=== PATIENT | male | born 1955 | race Caucasian/White ===

== ENCOUNTER 2021-05-25 05:37 | Outpatient (CLI) | payer MEDICARE, MEDICAID ==
[~2021-05-25] VITALS: Ht 190.5 cm; Wt 107.5 kg
[2021-05-25] MEDS ORDERED: CYCL10TA9 PO (15:00)
[2021-05-25] MEDS ORDERED: GLBR5T PO (15:00)
== END 2021-05-25 15:36 | disposition home or self-care (01) ==
LOC: PREOP 05:37
PROVIDERS: ATTEND Surgery
DX: Z01.818 Encounter for other preprocedural examination (principal)

== ENCOUNTER 2022-07-07 13:44 | Emergency (ER) | payer MEDICARE, MEDICAID ==
[~2022-07-07] VITALS: Ht 190 cm; Wt 97.0 kg
[~2022-07-07 13:44] MED LIST: CYCL10TA25 PO; GLBR5T PO
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
[2022-07-07] MEDS ORDERED: ACETAMINOPHEN 500 MG TAB (TYLENOL) PO ONE (14:15)
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
[2022-07-07] MEDS ORDERED: CYCL10TA25 PO (15:39)
[2022-07-07 15:48] VITALS: BP 145/75
== END 2022-07-07 15:48 | disposition home or self-care (01) ==
LOC: EDUNIT# 13:44 → ER 13:49
DX: M54.50 Low back pain, unspecified (principal); F17.200 Nicotine dependence, unspecified, uncomplicated; Z28.310 Unvaccinated for COVID-19; V89.2XXA Person injured in unspecified motor-vehicle accident, traffic, initial encounter; Y92.410 Unspecified street and highway as the place of occurrence of the external cause
CPT/HCPCS: 72125; 72128; 72131

== ENCOUNTER → 2022-07-15 | Outpatient (CLI) | payer MEDICARE, MEDICAID ==
--- NOTE | 2022-07-15 09:23 | Diagnostic Imaging Report ---
INDICATION: Chronic right shoulder pain after fall 3 years earlier AP, oblique and transscapular views of right shoulder are obtained with axillary view. There is superior subluxation of the humeral head with respect to the glenoid fossa. Mild marginal spurring is seen at the acromioclavicular joint. No acute fracture is seen. Note is made of calcific pleural plaque in the upper right chest. IMPRESSION: Degenerative findings in the right shoulder with probable long standing rotator cuff injury. No definite acute osseous abnormalities identified. Note is made of calcific pleural plaquing in the visible right hemithorax. Dictated by: Dictated on workstation # [id number]
== END ==
LOC: RAD FS 08:34
PROVIDERS: ATTEND Nurse Practitioner
DX: M19.011 Primary osteoarthritis, right shoulder (principal)
CPT/HCPCS: 73030

== ENCOUNTER 2022-08-01 00:49 | Emergency (ER) | payer MEDICAID, MEDICARE ==
[~2022-08-01] VITALS: Ht 190.5 cm; Wt 101.0 kg
[2022-08-01 00:55] VITALS: BP 160/92
[2022-08-01] MEDS ORDERED: KETOROLAC 30 MG/ML VIAL IM ONE (01:15)
--- NOTE | 2022-08-01 01:21 | ED Cough/URI ---
General Chief Complaint: Cough/Cold/Flu Symptoms Stated Complaint: FEVER/WSWEATS Nursing Triage Note: Patient states that he has been sick for the last 3-4 days stating that his only complaint has been cold sweats and chills. Patient wants to be checked out. History of Present Illness Date Seen by Provider: Aug 01, 2022 Time Seen by Provider: 01:05 Initial Comments 67-year-old male with PMH of DM2/active smoker, is here with complaints of feeling ill for the last 3 to 4 days with symptoms of subjective fever and chills with body aches. Patient states that he has an occasional cough. No known sick contacts. Denies diarrhea, abdominal pain, chest pain, shortness of breath, runny nose. Allergies and Home Medications Allergies Coded Allergies: codeine (Verified Allergy, Unknown, 07/07/22) morphine (Verified Allergy, Unknown, 07/07/22) naproxen (Verified Allergy, Unknown, 07/07/22) Patient Home Medication List Home Medication List Reviewed: Yes Cyclobenzaprine HCl (Cyclobenzaprine HCl) 10 Mg Tablet, 10 MG PO DAILY, (Reported) Entered as Reported by: ROLANDO SHAY on 05/25/21 1500 Cyclobenzaprine HCl (Cyclobenzaprine HCl) 10 Mg Tablet, 10 MG PO Q8H PRN for SPASMS Prescribed by: ANA BARAJAS on 07/07/22 1539 Glyburide (Glyburide) 5 Mg Tablet, 5 MG PO DAILY, (Reported) Entered as Reported by: ROLANDO SHAY on 05/25/21 1500 Review of Systems Review of Systems Constitutional: chills, fever, malaise Respiratory: no symptoms reported Cardiovascular: no symptoms reported Gastrointestinal: no symptoms reported Genitourinary: no symptoms reported Musculoskeletal: no symptoms reported Skin: no symptoms reported Psychiatric/Neurological: No Symptoms Reported Hematologic/Lymphatic: No Symptoms Reported Immunological/Allergic: no symptoms reported Past Ngsgtbh-Wiosfv-Zahfby Hx Patient Social History Tobacco Use?: Yes Tobacco type used: Cigarettes Smoking Status: Current Everyday Smoker Substance use?: Yes Substance type: Marijuana Alcohol Use?: No Pt feels they are or have been: No Past Medical History Surgeries: Yes (NOSE X3, R AND L HAND) Respiratory: No Cardiac: No Neurological: No Genitourinary: Yes (USES CATH) Gastrointestinal: Yes (HEPATITIS C) Hepatitis Endocrine: Yes Diabetes, Non-Insulin dep Cancer: No Physical Exam Vital Signs - First Documented 08/01/22 00:55 Temp 36.6 Pulse 101 Resp 18 B/P (MAP) 160/92 (114) Pulse Ox 98 O2 Delivery Room Air Capillary Refill : Less Than 3 Seconds Height: '" Weight: lbs. oz. kg; 27.00 BMI Method: General Appearance: WD/WN, no apparent distress HEENT: PERRL/EOMI, normal ENT inspection, TMs normal, pharynx normal Neck: non-tender, full range of motion, supple, normal inspection Respiratory: lungs clear, normal breath sounds, no respiratory distress Cardiovascular: regular rate, rhythm Gastrointestinal: normal bowel sounds, non tender, soft Extremities: normal range of motion Neurologic/Psychiatric: alert, normal mood/affect, oriented x 3 Skin: normal color Lymphatic: no adenopathy Progress/Results/Core Measures Suspected Sepsis SIRS Temperature: Pulse: 101 Respiratory Rate: 18 Blood Pressure 160 /92 Mean: 114 Results/Orders Lab Results Laboratory Tests Test 08/01/22 01:08 Range/Units Influenza Type A (RT-PCR) Not Detected Not Detecte Influenza Type B (RT-PCR) Not Detected Not Detecte SARS-CoV-2 RNA (RT-PCR) Not Detected Not Detecte My Orders Orders - MARGIE CHURCHILL MD Covid 19 Inhouse Test (08/01/22 01:05) Influenza A And B By Pcr (08/01/22 01:05) Ketorolac Injection (Toradol Injection) (08/01/22 01:15) Medications Given in ED Current Medications Medications Dose Ordered Sig/Mac Route Start Time Stop Time Status Last Admin Dose Admin Ketorolac Tromethamine 30 mg ONCE ONCE IM 08/01/22 01:15 08/01/22 01:16 DC 08/01/22 01:20 30 MG Vital Signs/I&O 08/01/22 00:55 Temp 36.6 Pulse 101 Resp 18 B/P (MAP) 160/92 (114) Pulse Ox 98 O2 Delivery Room Air Capillary Refill : Less Than 3 Seconds Blood Pressure Mean: 114 Progress Note : Progress Note 1. VIRAL SYNDROME - COVID test/ Rapid strep test/Rapid flu test: negative - Advised adequate hydration, Ibuprofen prn fever or body aches - Follow up with PCP in 3 to 7 days -The patient was seen in the ED, and treated appropriately to presentation at a specific point in time. Patient is informed that there is a possibility that disease and illness can evolve and change in acuity rapidly or slowly after patient is discharged from the ER. Precautionary advice given to the patient for immediate return to ER if symptoms worsen or do not resolve, and to seek emergency care sooner rather than later. Pt also advised on the importance of PCP follow up and compliance with management and follow up plan with PCP and/or specialist, as this is part of the management plan. Pt verbally expressed understanding. Departure Impression Primary Impression: Viral syndrome Disposition: HOME, SELF-CARE Condition: Stable Departure-Patient Inst. Referrals: CAMILO ROMANO MD (PCP) Primary Care Physician Patient Instructions: Viral Syndrome (DC) Add. Discharge Instructions: - Advised adequate hydration, Ibuprofen prn fever or body aches - Follow up with PCP in 3 to 7 days All discharge instructions reviewed with patient and/or family. Voiced understanding. MARGIE CHURCHILL MD Aug 01, 2022 01:20
== END 2022-08-01 01:41 | disposition home or self-care (01) ==
LOC: EDUNIT# 00:49 → ER FS 00:52
DX: B34.9 Viral infection, unspecified (principal); R50.9 Fever, unspecified; M79.10 Myalgia, unspecified site; R05.9 Cough, unspecified; F17.210 Nicotine dependence, cigarettes, uncomplicated; Z88.6 Allergy status to analgesic agent; Z28.310 Unvaccinated for COVID-19; Z20.822 Contact with and (suspected) exposure to COVID-19
CPT/HCPCS: 87636; 99284

== ENCOUNTER 2022-09-15 05:58 | Outpatient (CLI) | payer MEDICARE ==
[~2022-09-15] VITALS: Ht 190.5 cm; Wt 102.0 kg
[2022-09-15] MEDS ORDERED: TRAZ150T72 PO (11:45)
[2022-09-15] MEDS ORDERED: SEMA0.25 SQ (11:45)
== END 2022-09-15 11:48 ==
LOC: PREOP 05:58
PROVIDERS: ATTEND Surgery
DX: Z01.818 Encounter for other preprocedural examination (principal); Z12.11 Encounter for screening for malignant neoplasm of colon; K21.9 Gastro-esophageal reflux disease without esophagitis

== ENCOUNTER 2022-10-11 08:20 | Day surgery (SDC) | payer MEDICARE ==
[~2022-10-11] VITALS: Ht 190.5 cm; Wt 102.0 kg
[~2022-10-11 08:20] MED LIST changes: +SEMA0.25 SQ; +TRAZ150T72 PO
[2022-10-11] MEDS ORDERED: LACTATED RINGERS 1,000 ML IV STA (08:32)
[2022-10-11 08:45] VITALS: BP 154/97
[2022-10-11] MEDS ORDERED: HURRICAINE EXT TUBE (BENZOCAINE) XX PRN (08:45)
--- NOTE | 2022-10-11 09:26 | Progress Note-Pre Operative ---
Pre-Operative Progress Note Date H&P Reviewed: Oct 11, 2022 Time H&P Reviewed: 09:22 History & Physical: H&P Reviewed, Patient Examed, No changes noted Pre-Operative Diagnosis: GERD, screening colonoscopy BRYAN TIJERINA DO Oct 11, 2022 09:25
[2022-10-11] MEDS ORDERED: PROPOFOL INJECTION 50 ML IV ONE (10:04)
[2022-10-11] MEDS ORDERED: MIDAZOLAM 2 MG/2 ML (VERSED) VIAL ONE (10:04)
[2022-10-11 10:53] VITALS: BP 126/67
[2022-10-11 10:58] VITALS: BP 135/75
--- NOTE | 2022-10-11 11:00 | Progress Note-Post Operative ---
Post-Operative Progess Note Surgeon (s)/Radio Sportscaster (s) Surgeon BRYAN TIJERINA DO Radio Sportscaster: Darien Schwarz, MSIII Pre-Operative Diagnosis GERD, screening colonoscopy Post-Operative Diagnosis Gastritis Thomas's Esophagus Polyp int hemorrhoids poor prep Procedure & Operative Findings Date of Procedure 10/11/22 Procedure Performed/Findings EGD with bx Colonoscopy with snare polypectomy PROCEDURE NOTE: After informed consent was obtained, the patient was brought to the endoscopy suite, placed in bed in left lateral decubitus position. He was administered IV sedation by the CULINARY ARTS TEACHER who then monitored vitals the entire time, heart rate, blood pressure and pulse ox and the scope was inserted down the mouth through the esophagus into the stomach. On the way down, noted some moderate esophagitis, took a picture, pushed into the stomach, pushed past the antrum into the duodenum. Duodenum looked good. Pulled back and noted mild to moderate gastritis, did a biopsy of the antrum and the body of the stomach. Then retroflexed the scope, did not see a hiatal hernia and pulled the scope into the GE junction and then did a biopsy of the GE junction. Pushed the scope back into the stomach, suctioned all the air out of the stomach. At this point pulled the scope up the esophagus and out the mouth. Switched camera, switched gloves, went down below and started the colonoscopy. Pushed all the way to about 150 cm, on the way noted poor prep with large vegetable matter obstructing me from suctioning everything up. On the way in noted polyp in the ascending colon and removed this with snare polypectomy. Then I found another large polyp just outside the cecum, it was large and had to be removed in pieces. Once this was done pushed into the cecum, tried to take a picture of appendiceal orifice (may have) but there was retained fecal material; noted the ileocecal valve. Then slowly withdrew the scope insufflating to look circumferentially at the coto starting in the cecum, up the ascending colon to the hepatic flexure, then down the transverse colon, splenic flexure, into the descending colon down in the sigmoid and then into the rectal vault and took picture of the internal hemorrhoids. The patient tolerated the procedure and he recovered in the endoscopy suite. Recommended for repeat colonoscopy in 1 year because of polyp removed in pieces and the poor prep. Anesthesia Type IV sedation by CULINARY ARTS TEACHER Estimated Blood Loss Estimated blood loss (mL): scant Specimens/Packing Specimens Removed antral bx body of stomach bx GE jxn bx Asc colon polyp x 2 Sigmoid polyp BRYAN TIJERINA DO Oct 11, 2022 11:00
--- NOTE | 2022-10-11 11:02 | Endoscopy Discharge Instruct ---
Endo Procedure/Findings Findings 1.: Gastritis 2.: Thomas's Esophagus 3.: Polyp 4.: Internal Hemorrhoids Discharge Instructions - Activity: You might feel a little sleepy until tomorrow. This is due to the medicine you received to relax you. Until tomorrow, you should: NOT drive a car, operate machinery or power tools. NOT drink any alcoholic beverages. NOT make any important decisions or sign importortant papers. Do not return to work until tomorrow, unless otherwise instructed. Resume p revious activities tomorrow. Diet: Start by taking liquids. If you tolerate liquids, advance to solid food. 1.: EGD in 1 year 2.: Colonoscopy in 1 year Notify Physician - If you experience excessive bleeding, unusual abdominal pain, fever, or chest pain, contact your doctor immediately. Follow-Up: Other Follow up in one week in my office BRYAN TIJERINA DO Oct 11, 2022 11:02
[2022-10-11 11:03] VITALS: BP 172/101
[2022-10-11 11:10] VITALS: BP 164/84
[2022-10-11 11:35] VITALS: BP 172/101
--- NOTE | 2022-10-11 13:15 | Anesthesia-General Post-Op ---
MAC Patient Condition Mental Status/LOC: Same as Preop Cardiovascular: Satisfactory Nausea/Vomiting: Absent Respiratory: Satisfactory Pain: Controlled Complications: Absent Post Op Complications Complications None Follow Up Care/Instructions Patient Instructions None needed. Anesthesiology Discharge Order Discharge Order Patient is doing well, no complaints, stable vital signs, no apparent adverse anesthesia problems. No complications reported per nursing. KIRAN SUMNER CRNA Oct 11, 2022 13:14
== END 2022-10-11 11:45 | disposition home or self-care (01) ==
LOC: ENDO 08:20
PROVIDERS: ATTEND Surgery
DX: Z12.11 Encounter for screening for malignant neoplasm of colon (principal); D12.2 Benign neoplasm of ascending colon; D12.0 Benign neoplasm of cecum; D12.5 Benign neoplasm of sigmoid colon; K29.50 Unspecified chronic gastritis without bleeding; B96.81 Helicobacter pylori [H. pylori] as the cause of diseases classified elsewhere; K22.70 Barrett's esophagus without dysplasia; K64.8 Other hemorrhoids; K21.00 Gastro-esophageal reflux disease with esophagitis, without bleeding; Z80.0 Family history of malignant neoplasm of digestive organs; F17.210 Nicotine dependence, cigarettes, uncomplicated; Z28.310 Unvaccinated for COVID-19

== ENCOUNTER 2023-05-03 19:13 | Emergency (ER) | payer MEDICARE ==
[~2023-05-03] VITALS: Ht 190 cm; Wt 99.5 kg
--- NOTE | 2023-05-03 19:18 | ED Upper Extremity ---
General Stated Complaint: FALL,L SHOULDER PAIN History of Present Illness Date Seen by Provider: May 03, 2023 Time Seen by Provider: 19:17 Initial Comments 67-year-old male is here with complaints of left shoulder pain after he had a fall at home a little while ago. Patient was on a ladder, not that far up as per pt, and fell inside his home. Pt heard a pop in his left shoulder. Pt states he is unable to move his left shoulder well. Pt is able to hold up his phone in the ER with his left hand and look at it, although he states he cannot move his left arm at all. Allergies and Home Medications Allergies Coded Allergies: codeine (Verified Allergy, Unknown, 07/07/22) morphine (Verified Allergy, Unknown, 07/07/22) naproxen (Verified Allergy, Unknown, 07/07/22) Patient Home Medication List Home Medication List Reviewed: Yes Semaglutide (Ozempic) 0.25 Mg/0.2 Ml Pen.injctr, 1.5 MG SQ WEEK, (Reported) Entered as Reported by: KIRA LAURENT on 09/15/22 1145 Trazodone HCl (Trazodone HCl) 150 Mg Tablet, 150 MG PO HS, (Reported) Entered as Reported by: KIRA LAURENT on 09/15/22 1145 Review of Systems Constitutional: no symptoms reported EENTM: no symptoms reported Respiratory: no symptoms reported Cardiovascular: no symptoms reported Gastrointestinal: no symptoms reported Genitourinary: no symptoms reported Musculoskeletal: joint pain Skin: no symptoms reported Past Sbsnumo-Iunivk-Fpjfky Hx Immunizations Up To Date First/Initial COVID19 Vaccinat: no Second COVID19 Vaccination Antonio: no Third COVID19 Vaccination Date: no Seasonal Allergies Seasonal Allergies: No Past Medical History Surgeries: Yes (NOSE X3, R AND L HAND) Respiratory: No Cardiac: No Neurological: No Genitourinary: Yes (USES CATH to void) Gastrointestinal: Yes (HEPATITIS C) Gastroesophageal Reflux, Hepatitis Musculoskeletal: No Endocrine: Yes Diabetes, Non-Insulin dep HEENT: No Cancer: No Psychosocial: Yes Sleep Difficulties Integumentary: No Blood Disorders: No Physical Exam Vital Signs Vital Signs - First Documented 05/03/23 19:19 Temp 36.0 Pulse 76 Resp 20 B/P (MAP) 164/77 (106) Pulse Ox 98 O2 Delivery Room Air Capillary Refill : Height, Weight, BMI Height: '" Weight: lbs. oz. kg; 28.10 BMI Method: General Appearance: WD/WN, no apparent distress HEENT: PERRL/EOMI Neck: full range of motion Cardiovascular: regular rate, rhythm Respiratory: chest non-tender, lungs clear Shoulder: limited ROM, pain Elbow/Forearm: normal inspection, non-tender, no evidence of injury, normal ROM, Left Wrist: Yes normal inspection, Yes non-tender, Yes no evidence of injury Neurologic/Tendon: normal sensation Neurologic/Psychiatric: alert, oriented x 3 Skin: normal color Progress/Results/Core Measures Results/Orders My Orders Orders - MARGIE CHURCHILL MD Shoulder 3 View Left (05/03/23 19:19) Ice: Apply To Affected Area (05/03/23 19:28) Vital Signs/I&O 05/03/23 19:19 Temp 36.0 Pulse 76 Resp 20 B/P (MAP) 164/77 (106) Pulse Ox 98 O2 Delivery Room Air Progress Progress Note : Progress Note 1. LEFT SHOULDER STRAIN: - XR LEFT SHOULDER: no acute findings - Tylenol 1000mg STAT in ER/ Ice pack/ Sling given - Advised Tylenol every 4 hours as needed for pain, as well as udac-cxz-[id number] Lidoderm patches. -Advised ice application -Sling given -Follow-up with Ortho within 7 to 10 days -The patient was seen in the ED, and treated appropriately to presentation at a specific point in time. Patient is informed that there is a possibility that disease and illness can evolve and change in acuity rapidly or slowly after patient is discharged from the ER. Precautionary advice given to the patient for immediate return to ER if symptoms worsen or do not resolve, and to seek emergency care sooner rather than later. Pt also advised on the importance of PCP follow up and compliance with management and follow up plan with PCP and/or specialist, as this is part of the management plan. Pt verbally expressed understanding. Diagnostic Imaging Diagonstic Imaging: Xray Plain Films/CT/US/NM/MRI: other Comments [facility]. [place], [place] NAME: MECHELLE CISSE Sabrina MED REC#: [id number] PT STATUS: REG ER : 1955 PHYSICIAN: MARGIE CHURCHILL MD ADMIT DATE: 05/03/23/ER FS Signed Date of Exam:05/03/23 SHOULDER 3 VIEW LEFT INDICATION: Left shoulder pain. Time of Exam: 7:36 PM 3 views of the left shoulder demonstrate normal glenohumeral and acromioclavicular alignment. Acromiohumeral space is normal. No fracture or dislocation is identified. IMPRESSION: No acute bony abnormality is detected. Dictated by: Dictated on workstation # [id number] Dict: 05/03/231938 Trans: 05/03/231944 [facility] [id number] Interpreted by: RU ASHRAF MD Electronically signed by: RU ASHRAF MD 05/03/231944 Departure Impression Primary Impression: Left shoulder strain Additional Impression: Fall from ladder Disposition: 01 HOME, SELF-CARE Condition: Stable Departure-Patient Inst. Referrals: CAMILO ROMANO MD (PCP) Primary Care Physician Patient Instructions: How to Use a Shoulder Sling, Using Cold for Pain, Preventing falls in adults, Muscle Strain ED Add. Discharge Instructions: - Advised Tylenol every 4 hours as needed for pain, as well as [id number] Lidoderm patches. -Advised ice application -Sling given -Follow-up with Ortho within 7 to 10 days MARGIE CHURCHILL MD May 03, 2023 19:18
[2023-05-03 19:19] VITALS: BP 164/77
--- NOTE | 2023-05-03 19:42 | Diagnostic Imaging Report ---
INDICATION: Left shoulder pain. Time of Exam: 7:36 PM 3 views of the left shoulder demonstrate normal glenohumeral and acromioclavicular alignment. Acromiohumeral space is normal. No fracture or dislocation is identified. IMPRESSION: No acute bony abnormality is detected. Dictated by: Dictated on workstation # [id number]
[2023-05-03] MEDS ORDERED: ACETAMINOPHEN 500 MG TABLET ONE (19:53)
[2023-05-03] MEDS ORDERED: ACETAMINOPHEN 500 MG TABLET PO ONE (20:00)
== END 2023-05-03 20:15 | disposition home or self-care (01) ==
LOC: EDUNIT# 19:13 → ER FS 19:14
DX: S46.912A Strain of unspecified muscle, fascia and tendon at shoulder and upper arm level, left arm, initial encounter (principal); Z88.6 Allergy status to analgesic agent; W11.XXXA Fall on and from ladder, initial encounter; Y92.009 Unspecified place in unspecified non-institutional (private) residence as the place of occurrence of the external cause
CPT/HCPCS: 73030

== ENCOUNTER 2023-05-10 22:01 | Emergency (ER) | payer MEDICARE ==
[~2023-05-10] VITALS: Ht 190 cm; Wt 97.8 kg
[2023-05-10 22:06] VITALS: BP 145/85
[2023-05-10] MEDS ORDERED: HYDROcodone/ACETAMINOPHEN 5 MG/325 MG TABLET PO ONE (23:15)
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
[2023-05-10] MEDS ORDERED: CYCL10TA25 PO (23:41)
[2023-05-10] MEDS ORDERED: KETO10TA PO (23:41)
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
== END 2023-05-11 01:05 | disposition home or self-care (01) ==
LOC: EDUNIT# 22:01 → ER FS 22:03
DX: S43.402A Unspecified sprain of left shoulder joint, initial encounter (principal); S16.1XXA Strain of muscle, fascia and tendon at neck level, initial encounter; S39.012A Strain of muscle, fascia and tendon of lower back, initial encounter; F17.210 Nicotine dependence, cigarettes, uncomplicated; V33.5XXA Driver of three-wheeled motor vehicle injured in collision with car, pick-up truck or van in traffic accident, initial encounter; Y92.410 Unspecified street and highway as the place of occurrence of the external cause
CPT/HCPCS: 72125; 72131; 73030